=== PATIENT | male | born 1940 | race Caucasian/White ===

== ENCOUNTER → 2016-11-14 | Outpatient (CLI) | payer MEDICARE, OTHER ==
--- NOTE | ~2016-11-14 | CST ---
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 Risks, complications and alternative treatments were reviewed. Written consent was obtained. Medications Reviewed with Patient prior to Procedure. Procedure Procedure Type: Nuclear Stress Test:Pharmacological, Lexiscan Procedure Start time: 11/14/2016 07:30 Indications: Chest pain, Shortness of breath, History of CAD and Hypertension. Risk Factors The patient risk factors include:prior CABG;peripheral arterial disease, former tobacco use, treated hypertension and chronic lung disease. Conclusions Summary Perfusion Images: The overall quality of the study is fair, due to arms not up . Left ventricular cavity is noted to be normal on the stress and rest studies. There is no evidence of abnormal lung activity. The right ventricle is not visualized and cannot be assessed. Stress SPECT images demonstrate homogenous tracer distribution throughout the myocardium. Rest SPECT images demonstrate homogenous tracer distribution throughout the myocardium. Gated SPECT imaging reveals normal myocardial thickening and wall motion. The left ventricular ejection fraction was calculated to be 60%. Impression ECG portion of stress test is clinically negative for ischemia by diagnostic criteria. Myocardial perfusion imaging is normal. The inferior wall matched defect is consistent with diaphragm attenuation. Overall left ventricular systolic function was normal without regional wall motion abnormalities. There are no previous studies for comparison. . Stress Protocols Resting ECG Normal sinus rhythm. Right bundle branch block. Resting HR:62 bpm Resting BP:184/82 mmHg Stress Protocol:Pharmacologic Predicted HR: 144 bpm Test duration: 06:00 min Reason for termination:Infusion complete ECG Findings Normal sinus rhythm. Right bundle branch block. Symptoms Shortness of breath. Symptoms resolved by end of test. Complications Procedure complication: None. Stress Interpretation Appropriate hemodynamic response to Lexiscan. No significant ST-T wave changes with Lexiscan. ECG portion is negative for ischemia by diagnostic criteria. Imaging Results Summed scores - Summed stress score: 5 - Summed rest score: 6 - Summed difference score: -1 Stress ejection Ejection fraction:61 % EDV :97 ml ESV :38 ml Stroke volume :59 ml LV mass :118 gr Imaging Protocols Rest Stress Isotope:Tc99m Myoview IV Isotope: Tc99m Myoview IV Isotope dose:10.2 mCi Isotope dose:30.9 mCi Date:11/14/2016 06:30 Date:11/14/2016 07:30 Technique: SPECT Technique: Gated Supine SPECT Supine Scan Time:30 minutes post injection Scan Time:15-30 minutes post injection Procedure Medications - Regadenoson (Lexiscan) 0.4 mg IV over 10-15 sec. I.V. . Medications administered per verbal order and read back to physician prior to administration. Medical History Admission Data Admission date: 11/14/2016 Admission Time: 05:50 Hospital Status: Outpatient. Signatures
== END | disposition home or self-care (01) ==
LOC: CARD 05:50
DX: R07.9 Chest pain, unspecified (principal)